=== PATIENT | male | born 1940 | race Caucasian/White ===

== ENCOUNTER 2021-02-24 17:46 | Inpatient (IN) | payer MEDICARE, OTHER ==
[~2021-02-24] VITALS: Ht 190.5 cm; Wt 100.2 kg
[2021-02-24 18:42] LABS: BASO # 0.1 (0.0-0.2); BASO % 0.4 % (0.0-2.0); EOS # 0.2 (0.0-0.7); EOS % 1.9 % (0-4.0); GRAN % 67.5 % (42.2-75.2); HEMATOCRIT 42.2 % (42.0-52.0); HEMOGLOBIN 14.5 g/dl (13.5-18.0); LYMPH # 2.7 (1.2-3.4); LYMPH % 22.3 % (20.0-51.0); MEAN CELL VOLUME 97 fl (80.0-100.0); MEAN CORPUSCULAR HEMOGLOBIN 33 pg (27.0-31.0); MEAN CORPUSCULAR HGB CONC 34 g/dl (33.0-37.0); MEAN PLATELET VOLUME 10.4 fl (7.4-10.4); MONO # 0.9 (0.1-0.6); MONO % 7.3 % (1.7-9.3); PLATELET COUNT 214 K/mm3 (130-400); RED BLOOD COUNT 4.36 M/mm3 (4.20-5.60)
[2021-02-24 18:52] LABS: ALBUMIN 4.4 gm/dL (3.5-5.0); BILIRUBIN,TOTAL 0.7 mg/dL (0.0-1.0); CALCIUM 8.8 mg/dL (8.4-10.2); CREATININE, serum 1.16 (0.66-1.25); POTASSIUM 4.5 mmol/L (3.4-5.0); TOTAL PROTEIN 7.3 gm/dL (6.4-8.2)
[2021-02-24] MEDS ORDERED: NEURONTIN300 MG/CAP PO (21:39)
[2021-02-24] MEDS ORDERED: [UNRECOGNIZED DRUG - CODE] (21:40)
[2021-02-24] MEDS ORDERED: KLONOPIN 0.5MG0.5 MG PO (21:40)
[2021-02-24] MEDS ORDERED: GLUCOPHAGE500 MG/TAB PO (21:40)
[2021-02-24] MEDS ORDERED: CRESTOR40 MG PO (21:41)
[2021-02-24] MEDS ORDERED: ASPIRIN E.C. 8181 MG PO (21:41)
[2021-02-24] MEDS ORDERED: VITAMIN B COMPL1 SGL PO (21:41)
[2021-02-24] MEDS ORDERED: OMEGA-3 FISH1000 MG PO (21:41)
[2021-02-24] MEDS ORDERED: [UNRECOGNIZED DRUG - OTHER] TOP (21:42)
--- NOTE | 2021-02-24 22:05 | NUR ---
C/O pain to left side/chest/shoulder-rating pain 8/10 on pain scale. Unable to answer questions due to moaning out. Oxycodone given per dr gatica.
--- NOTE | 2021-02-24 22:20 | NUR ---
Arrived to room 344 via stretcher. Assisted to bed-3 assist and slide board. Admission assessment complete. Is A&Ox3-very groggy from pain meds in ED. at bedside to help with history questions. Chest tube to left side-dressing CDI-suction @20cm. Noted to have an abrasion to left elbow. States when he fell he hit his left shoulder-complains of this being sore. Denies shortness of breath-O2@2L/NC with good O2 sats. Plan of care discussed for this shift to include pain control/calling for questions/concerns. Verbalizes understanding. Assisted with removing riding gear- Judith took items home with her. Call light in reach. Will monitor.
[2021-02-24 23:40] VITALS: BP 133/78; PULSE 73; TEMP 97.7
--- NOTE | 2021-02-25 | NUR ---
Called stating "I cant stand this pain anymore." Rating pain 8/10 on pain scale-described as sharp throbbing. Morphine given per dr order.
[2021-02-25 03:49] VITALS: BP 130/64; PULSE 60; TEMP 98.4
[2021-02-25 04:45] LABS: COLLECTION METHOD CLEAN CATCH
[2021-02-25 04:54] LABS: MUCOUS Present /lpf; PH 5 (5-8); SQUAMOUS EPITHELIAL None Seen /hpf; URINE APPEARANCE Clear; URINE BACTERIA None Seen /hpf; URINE BILIRUBIN Negative (NEGATIVE); URINE BLOOD Negative (NEGATIVE); URINE COLOR Yellow; URINE GLUCOSE Negative (NEGATIVE); URINE KETONE Negative (NEGATIVE); URINE LEUKOCYTE ESTERASE Negative (NEGATIVE); URINE NITRATE Negative (NEGATIVE); URINE PROTEIN(semi-quant) Negative (NEGATIVE); URINE UROBILINOGEN Negative (NEGATIVE)
--- NOTE | 2021-02-25 04:59 | NUR ---
Pain is better controlled now with scheduled tylenol/motrin rotation and oxycodone for break through. Did received one dose of morphine when first came to floor. Chest tube with 85mls total output-red in color. Dressing to chest tube site CDI. Denies current needs. Call light in reach. Will monitor.
[2021-02-25 06:31] LABS: CALCIUM 8.3 mg/dL (8.4-10.2); CREATININE, serum 1.09 (0.66-1.25); POTASSIUM 4.3 mmol/L (3.4-5.0)
[2021-02-25 06:33] LABS: HEMATOCRIT 40.2 % (42.0-52.0); HEMOGLOBIN 13.5 g/dl (13.5-18.0)
--- NOTE | 2021-02-25 07:20 | NUR ---
Patient sitting up in bed. Alert and oriented x 3. Assessment complete. States pain to chest tube site 01/15, medications given per orders. Chest tube to right chest with bloody drainage present. CT to suction. Patient on 2L o2 via NC. SCDS to BLE. Denies additional needs at this time.
--- NOTE | 2021-02-25 07:43 | NUR ---
Dr. Holt in to see patient.
[2021-02-25 07:54] VITALS: BP 116/62; PULSE 50; TEMP 97.6
--- NOTE | 2021-02-25 09:27 | NUR ---
SW met with the patient to discuss discharge plan. The patient lives in [place] with his , Judith ([id number]#[phone]). Him and his were visiting their daughter, Rubina (ph#[phone]), who lives in [place]. He reports independence with ADLs and does not have any DME. The patient's PCP is Dr. James Carey and he receives his medications from [facility] in [place] and on [address] in [place]. He reports no difficulties obtaining his meds. The patient's DPOA-HC is on his chart and it designates his and his daughter, Rubina. The patient plans to return back to his daughter's house in [place] upon discharge. SW to follow as needed. *Discharge plan: Will return to daughter's home*
--- NOTE | 2021-02-25 11:23 | NUR ---
Patient sitting up in recliner. Denies pain or needs at this time.
[2021-02-25 11:34] VITALS: BP 108/55; PULSE 50; TEMP 97.1
--- NOTE | 2021-02-25 13:01 | NUR ---
Initial visit; Patient and his thanked Pipe Coverer Helper for looking in on Cesar, for visiting and Offering God's blessings. Pipe Coverer Helper will keep Cesar in her prayers and will follow up tomorrow.
--- NOTE | 2021-02-25 13:51 | NUR ---
Patient back to bed. Denies additional needs at this time.
[2021-02-25 16:00] VITALS: BP 118/54; PULSE 68; TEMP 98.3
--- NOTE | 2021-02-25 19:10 | NUR ---
Bedside shift report received, assumed care for night coordinator. Assessment complete. A&Ox3. Denies nausea/shortness of breath. States pain in chest/shoulder is better today. Denies need for pain medication stating he wanted to just try motrin/tylenol. Chest tube to water seal with serosanguineous output. Plan of care discussed for this shift to include meds/up out of bed as tolerated/calling for questions/concerns. Verbalizes understanding/denies needs. Call light in reach. Will monitor.
--- NOTE | 2021-02-25 19:10 | NUR ---
Patient doing well throughout the day. Has been up to recliner and ambulated with PT this afternoon. Educated patient on pain mediations. Chest tube to waterseal with bloody drainage present. Patient denies additional needs at this time. Reported off to police shift commander.
[2021-02-25 20:00] VITALS: BP 125/59; PULSE 46; TEMP 97.6
--- NOTE | 2021-02-25 21:30 | NUR ---
Up out of bed at this time. Oral care completed. Ambulated in the room with stand by assist/walker. Assisted back to bed with pillow support. Call light in reach. Will monitor.
[2021-02-25 23:00] VITALS: BP 124/56; PULSE 86; TEMP 97.8
--- NOTE | 2021-02-26 02:10 | NUR ---
Up out of bed at this time. Ambulated in room. Can not get comfortable in the bed. Assisted to recliner with pillow supports. States he feels better in the chair. Call light in reach. Will monitor.
[2021-02-26 04:30] VITALS: BP 128/56; PULSE 86; TEMP 98
[2021-02-26 08:20] VITALS: BP 136/63; PULSE 64; TEMP 97.6
--- NOTE | 2021-02-26 10:11 | NUR ---
Follow-up visit; Patient thanked Truck Rental Clerk for looking in on him again today and enjoying a visit and offering God's blessings.
[2021-02-26 12:34] VITALS: BP 133/77; PULSE 68; TEMP 97.5
[2021-02-26 16:11] VITALS: BP 129/57; PULSE 68; TEMP 97.3
--- NOTE | 2021-02-26 18:11 | NUR ---
Patient doing well throughout the day. Has been up ambulating in room. Continues having pain to chest tube site, medications given as ordered. Up to recliner throughout the day, has been up ambulating in room. Denies further needs at this time. Will report off to hotel night auditor.
[2021-02-26 19:05] VITALS: BP 157/78; PULSE 77
--- NOTE | 2021-02-26 20:00 | NUR ---
Bedside shift report received, assumed care for retail shift leader. Assessment complete. VS stable. A&Ox3. Denies nausea/shortness of breath. Rating pain 3/10 on pain scale-described as intermittent throbbing-denies need for pain medication. Requesting stool softner-new orders received and meds given. Old chest tube site dressing CDI. Up in room with stand by assist/walker. Voided without difficulty. Plan of care discussed for this shift to include meds/pain control/calling for questions/concerns. Will continue to monitor.
--- NOTE | 2021-02-27 00:49 | NUR ---
Patient called c/o pain to left shoulder/left chest-rating pain 8/10 on pain scale-described as constant ache with intermittent sharpness. Oxycodone given per dr gatica. Will monitor.
[2021-02-27 00:58] VITALS: BP 138/76; PULSE 71; TEMP 97.9
[2021-02-27 04:57] VITALS: BP 156/86; PULSE 72; TEMP 97.8
--- NOTE | 2021-02-27 05:49 | NUR ---
Sat most of the night in the chair. Wasnt able to get much sleep-stated he just couldnt sleep. Received one dose of oxycodone for pain. Ambulated in the hallway with walker/stand by assist/gait belt. Call light in reach. Will monitor.
[2021-02-27 08:00] VITALS: BP 124/53; PULSE 61; TEMP 98
[2021-02-27] MEDS ORDERED: ROXICODONE 55 MG/TAB PO ×3 (09:16→12:42)
--- NOTE | 2021-02-27 10:43 | NUR ---
Patient alert and oriented, answers questions appropriately. See assessment. Lungs decreased in bases, clear in upper lobes. Respers even and unlabored. No c/o SOA. VSS. Patient actively using IS. No c/o at this time.
--- NOTE | 2021-02-27 11:04 | NUR ---
The patient is walking 300 ft with PT now. Nikole, IPR Director, reports that the patient is too functional and that they will have to decline the patient. ELLI met with the patient to update and discussed home health. The patient reports that he plans on returning back to his daughter's home in [place] upon discharge. He states that he is not really interested in home health at this time, but was interested in a list of agencies. SW presented and read the IM form outloud the patient. The patient verbalized understanding and signed the form. SW provided him with a copy. ELLI also provided him with Medicare.[employer]'s list of home health agencies that serve [place]. SW attempted to contact the patient's to review d/c plan. She did not answer. ELLI then contacted the patient's daughter, Rubina, to review the above. Rubina reports no concerns with the patient returning to her home upon discharge. She states that they have everything the patient may need at her home and that he will be on one level. She was not interested in home health at this time either. The patient is to discharge to his daughter's home in [place] today, 02/27. No additional needs at this time.
--- NOTE | 2021-02-27 11:45 | NUR ---
Discharge instructions reviewed with patient, verbalized understanding. Discharged via wheelchair to auto/home with spouse at 1145.
== END 2021-02-27 11:45 | disposition home or self-care (01) | DRG 200 ==
LOC: COL.ER 17:46 → SURG 19:19
PROVIDERS: Family Medicine; ADMIT Surgery
PROC: 0W9B30Z Drainage of Left Pleural Cavity with Drainage Device, Percutaneous Approach (ICD-10-PCS; principal; 2021-02-27)
DX: S27.0XXA Traumatic pneumothorax, initial encounter (principal); S22.42XA Multiple fractures of ribs, left side, initial encounter for closed fracture; V29.9XXA Motorcycle rider (driver) (passenger) injured in unspecified traffic accident, initial encounter; Y93.55 Activity, bike riding; Y92.9 Unspecified place or not applicable; I25.2 Old myocardial infarction
CPT/HCPCS: A7041; A9284; J0690; J1650; J2270; J2405; Q9967